=== PATIENT | male | born 1995 | race Two or more races ===

== ENCOUNTER 2023-11-04 13:31 | Emergency (ER) | payer OTHER ==
[~2023-11-04] VITALS: Ht 180.3 cm; Wt 140.9 kg
[2023-11-04 13:31] VITALS: BP 132/53; PULSE 70; RESP 16; O2SAT 98
[2023-11-04 14:53] LABS: Basophils # (auto) 0 10 ^3/uL (0-0.2); Basophils % (auto) 0.4 % (0.0-2.0); Eosinophils # (auto) 0.2 10 ^3/uL (0-0.8); Monocytes # (auto) 0.5 10 ^3/uL (0-1.3); Neutrophils # (auto) 4.1 10 ^3/uL (1.6-8.6); Red Cell Distribution Width 13.4 % (11.8-14.3)
[2023-11-04 14:54] LABS: Eosinophils % (auto) 2.8 % (0.0-7.0); Hematocrit 46.2 % (41.0-53.0); Hemoglobin 15.4 g/dL (13.5-17.5); Lymphocytes # (auto) 1.5 10 ^3/uL (0.4-5.4); Lymphocytes % (auto) 24.6 % (10.0-50.0); Mean Corpuscular Hemoglobin 25.8 pg (28.0-32.0); Mean Corpuscular Hgb Conc. 33.2 g/dL (32.0-36.0); Mean Corpuscular Volume 77.8 fL (80.0-100.0); Monocytes % (auto) 7.2 % (0.0-12.0); Nucleated Red Blood Cells % 0.1 %; Red Blood Cells 5.94 10^6/uL (4.5-5.90); White Blood Cell 6.3 10^3/uL (4.4-10.8)
[2023-11-04] MEDS ORDERED: HYDR25SU21 PR (17:07)
== END 2023-11-04 17:23 | disposition home or self-care (01) ==
LOC: ER 13:31
DX: K64.9 Unspecified hemorrhoids (principal); K21.9 Gastro-esophageal reflux disease without esophagitis; Z98.890 Other specified postprocedural states
CPT/HCPCS: 36415; 74176; 85025

== ENCOUNTER 2025-03-05 14:18 | Emergency (ER) | payer MEDICAID, OTHER ==
[~2025-03-05] VITALS: Ht 180.3 cm; Wt 111.5 kg
[~2025-03-05 14:18] MED LIST: HYDR25SU21 PR
[2025-03-05 15:28] LABS: Hepatitis B Surface Antibody Positive (Negative); Hepatitis B Surface Antigen Negative (Negative)
--- NOTE | 2025-03-05 15:58 | ED.PDOC ---
History of Present Illness EXP HPI Comments 21-YEAR-OLD MALE PRESENTS TO THE EMERGENCY DEPARTMENT FOR CHIEF COMPLAINT STATUS POST EXPOSURE. PATIENT REPORTS, HE WAS AT WORK WHEN HE WAS CHANGING A LEFT LEG PORT ON HIS PATIENT, WHEN PORT ACCIDENTLY SQUIRTED BLOOD INTO HIS MOUTH, NOSE, AND EYES. PATIENT ENDORSES FLUSHING OUT HIS EYES FOLLOWING EXPOSURE. PATIENT COMPLAINS OF CURRENT HEADACHE. PATIENT DENIES BLURRED, VISION, NAUSEA, VOMITING, FEVER, OR CHILLS. NO OTHER SYMPTOMS OR MODIFYING FACTORS PRESENT AT THIS TIME. Chief Complaint: Post Exposure Time Seen by MD: 15:50 Primary Care Provider: NONE Reviewed Notes: Nurses Notes, Medications, Allergies Allergies: Coded Allergies: NO KNOWN ALLERGIES (Unverified , 11/04/23) Home Meds Active Scripts Hydrocortisone Acetate (Anusol-Hc) 25 Mg Sup, 1 SUPP MI BID, #14 SUPP Prov:RANI LOPEZ MD 11/04/23 Information Source: Patient Mode of Arrival: Ambulatory Severity: Moderate Timing: Minutes Duration: Since onset Prehospital treatment: None Exposed to: Blood Exposed by: Splash Treatment prior to arrival: Washing Source information: Dialysis Patient information: None Past Medical History PAST MEDICAL HISTORY: GERD Surgical History: Denies all surgeries Family History Family History: Reviewed,noncontributory to illness, Family hx of Cancer Social History Smoker: Other (VAPES) Alcohol: Occasionally Drugs: Denies Drug Use Lives In: Home Neurological: reports: headache All Other Systems: Reviewed and Negative ( PER HPI) Physical Exam General Appearance: No Apparent Distress, Normal HEENT: Normal ENT Inspection, Pharynx Normal Neck: Full Range of Motion, Non-Tender, Normal, Normal Inspection Respiratory: Chest Non-Tender, Lungs Clear, No Accessory Muscle Use, No Respiratory Distress, Normal Breath Sounds Cardiovascular: No Edema, No Murmur, No Gallop, Normal Peripheral Pulses, Regular Rate/Rhythm Breast Exam: Deferred Gastrointestinal: No Organomegaly, Non Tender, No Pulsatile Mass, Normal Bowel Sounds, Soft Genitalia: Deferred Pelvic: Deferred Rectal: Deferred Extremities: No calf tenderness, Normal capillary refill, Normal inspection, Normal range of motion, Non-tender, No pedal edema Musculoskeletal : Apperance: Normal Neurologic: Alert, foot worker II-XII nml as Tested, No Motor Deficits, Normal Affect, Normal Mood, No Sensory Deficits Cerebellar Function: Normal Reflexes: Normal Skin: Dry, Normal Color, Warm Lymphatic: No Adenopathy Was a procedure done? Was a procedure done?: No Differential Diagnosis (EXP) Differential Diagnosis: Body fluid exposure X-Ray, Labs, Meds, VS Vital Signs Date Time Temp Pulse Resp B/P (MAP) Pulse Ox O2 Delivery O2 Flow Rate FiO2 03/05/25 14:36 98.2 69 16 137/68 (91) 98 98.2 Lab Test 03/05/25 14:39 Range/Units Hepatitis B Surface Antigen Negative Negative Hepatitis B Surface Antibody Positive H Negative Hepatitis C Antibody Negative Negative HIV (1&2) Antibody Negative Negative 29-year-old male presents here status post blood exposure. 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 Patient states he immediately washed everything. He did not have an eye station at the facility but he did rinse his eye as well as he could. When he came to the emergency room he rinsed his eyes again. At this time post exposure labs has been done. I have offered him post exposure treatment to HIV. Patient is agreeable. I have sent in prescriptions to his pharmacy. Unable to test source as patient does not here. Advised patient that he should contact facility to see if they are able to draw her blood after getting her permission. Time of 1ST Reevaluation: 16:20 Reevaluation 1ST: Unchanged Patient Education/Counseling: Diagnosis, Treatment Family Education/Counseling: No Family Present Departure 1 Departure Time of Disposition: 16:18 Impression: Primary Impression: Exposure to blood Additional Impression: Encounter for HIV pre-exposure prophylaxis Disposition: HOME / SELF CARE / HOMELESS Condition: Stable e-Prescriptions Dolutegravir Sodium (TIVICAY) 50 Mg Tab 50 MG OR DAILY for 30 Days, #30 TAB Prov: DIPESH GARCIA MD 03/05/25 Emtricitabine-Tenofovir Disopr (Truvada) Tab 1 TAB PO DAILY, #30 TAB 2 Refills Prov: DIPESH GARCIA MD 03/05/25 Discharged With: Self, Relative, Significant Other Critical Care Note Critical Care Time?: No Stability Stability form required: No Heart Score Heart Score: Heart Score Response (Comments) Value History N/A 0 EKG N/A 0 Age N/A 0 Risk Factors N/A 0 Troponin N/A 0 Total 0 I personally scribed for DIPESH GARCIA MD ([email or web address]) on 03/05/25 at 15:58. E lectronically submitted by Perla Hernandez ([email or web address]). DIPESH GARCIA MD Mar 05, 2025 15:58
[2025-03-05] MEDS ORDERED: EMTRTAB7 PO (16:23)
[2025-03-05] MEDS ORDERED: DOLU50TA OR (16:23)
[2025-03-05 16:30] VITALS: BP 117/70; PULSE 59; RESP 16; TEMP 97.9; O2SAT 95
== END 2025-03-05 17:03 | disposition home or self-care (01) ==
LOC: ER 14:18
DX: Z77.21 Contact with and (suspected) exposure to potentially hazardous body fluids (principal); R51.9 Headache, unspecified; F17.290 Nicotine dependence, other tobacco product, uncomplicated; F10.90 Alcohol use, unspecified, uncomplicated; K21.9 Gastro-esophageal reflux disease without esophagitis; Z29.81 Encounter for HIV pre-exposure prophylaxis; Z79.899 Other long term (current) drug therapy; Y90.9 Presence of alcohol in blood, level not specified
CPT/HCPCS: 36415; 86703; 86706; 86803; 87340